=== PATIENT | female | born 1960 | race Caucasian/White ===

== ENCOUNTER → 2017-07-25 | Outpatient (CLI) | payer OTHER ==
[~2017-07-25] VITALS: Ht 176.5 cm; Wt 112.9 kg
[~2017-07-25] MED LIST: ALIGN4 MG PO; CELEXA10 MG PO; FIORICET,ESG1 TABLET PO; LEVOTHYROXINE88 MCG PO; LO-DOSE ASPIRIN81 M1 PO; METRO CREAM 0.745 GM TP; OMEPRAZOLE40 M1 PO; VALSARTAN-HCTZ1 EAC2 PO; VITAMIN B-6100 MG PO; VITAMIN D35000 UNIT PO; WELLBUTRIN XL300 MG PO
== END | disposition home or self-care (01) ==
LOC: AMB 11:57
PROC: 0DJD8ZZ Inspection of Lower Intestinal Tract, Via Natural or Artificial Opening Endoscopic (ICD-10-PCS; principal; 2017-07-25)
DX: R14.0 Abdominal distension (gaseous) (principal); K64.8 Other hemorrhoids; Z79.82 Long term (current) use of aspirin; K21.9 Gastro-esophageal reflux disease without esophagitis; F41.9 Anxiety disorder, unspecified; F32.9 Major depressive disorder, single episode, unspecified; I10 Essential (primary) hypertension; E03.9 Hypothyroidism, unspecified; Z86.19 Personal history of other infectious and parasitic diseases; Z90.49 Acquired absence of other specified parts of digestive tract; Z83.79 Family history of other diseases of the digestive system
CPT/HCPCS: J2250